=== PATIENT | male | born 1975 | race American Indian/Alaskan Native ===

== ENCOUNTER 2021-03-15 07:42 | Emergency (ER) | payer SELFPAY ==
--- NOTE | 2021-03-15 08:05 | Emergency Department Report ---
[facility] Chief Complaint: Eye Problems Stated Complaint: POSS PINK EYE Time Seen by Provider: 03/15/21 07:51 Duration: 2 Days Side: Left Severity: moderate Symptoms: Yes Eye Redness, Yes Eye Pain, Yes Mucous Drainage, Yes Preceding URI, No Eye Itching, No Purulent Drainage, No Blurred Vision, No H/O Allergic Rhinitis, No Contact Lens Use, No Trauma, No Fever, No Headache ED Review of Systems ROS: Stated complaint: POSS PINK EYE Other details as noted in HPI Comment: All other systems reviewed and negative Constitutional: denies: chills, fever Eyes: eye pain, eye discharge. denies: vision change Respiratory: denies: cough, shortness of breath Cardiovascular: denies: chest pain, palpitations Gastrointestinal: denies: abdominal pain, nausea, vomiting, diarrhea Musculoskeletal: denies: back pain Neurological: denies: headache, weakness [facility] Exam - Exam General: Vital signs noted. No distress. Alert and acting appropriately. Eye Exam: Left Injection, Both EOMI, Neither Eye Foreign Body, Neither Lid Foreign Body, Neither Mucous Discharge, Neither Purulent Discharge HEENT: Yes Nasal Congestion, No Pharyngeal Erythema Remainder of HEENT: Normal Lungs: Yes Clear Lung Sounds, Yes Good Air Exchange Critical care attestation.: If time is entered above; I have spent that time in minutes in the direct care of this critically ill patient, excluding procedure time. ED Disposition Clinical Impression: Conjunctivitis Disposition: 01 HOME / SELF CARE / HOMELESS Is pt being admited?: No Condition: Stable Instructions: How to Use Eye Drops and Eye Ointments, Bacterial Conjunctivitis, Adult Referrals: PRIMARY CARE, [Referring] - 3-5 Days
== END 2021-03-15 08:36 | disposition home or self-care (01) ==
LOC: ED 07:42
DX: H10.9 Unspecified conjunctivitis (principal)
CPT/HCPCS: 99281